=== PATIENT | male | born 1965 | race Caucasian/White ===

== ENCOUNTER 2022-11-20 12:47 | Inpatient (IN) | payer OTHER ==
[~2022-11-20] VITALS: Ht 185.4 cm; Wt 47.6 kg
--- NOTE | 2022-11-20 13:03 | NUR ---
DR HUNT AT BEDSIDE
--- NOTE | 2022-11-20 13:21 | NUR ---
CHRISTINA ESTABLISHED. Lindsey BURGOS 20G.
--- NOTE | 2022-11-20 13:21 | NUR ---
covid swab collected and sent to lab
--- NOTE | 2022-11-20 13:21 | NUR ---
BLOOD COLLECTED AND SENT TO LAB
--- NOTE | 2022-11-20 13:29 | NUR ---
URINE SAMPLE COLLECTED AND SENT TO LAB
[2022-11-20 13:57] LABS: BASOPHILS % (AUTO) 0.9 % (0.0-2.0); EOSINOPHILS % (AUTO) 0.6 % (0.0-6.0); HEMATOCRIT 36 % (39-51); HEMOGLOBIN 12.1 g/dL (13.5-17.5); LYMPHOCYTES # (AUTO) 0.9 K/uL (0.8-4.8); LYMPHOCYTES % (AUTO) 27.1 % (20.0-44.0); MEAN CORPUSCULAR HGB CONC 33 g/dl (31.0-36.0); MEAN CORPUSCULAR VOLUME 94 fL (80-96); MONOCYTES # (AUTO) 0.5 K/uL (0.1-1.30); MONOCYTES % (AUTO) 15.7 % (2.0-12.0); NEUTROPHILS # (AUTO) 1.8 K/uL (1.8-8.9); NEUTROPHILS % (AUTO) 55.7 % (43.0-81.0); PLATELET COUNT (AUTO) 114 K/uL (150-450); RED BLOOD CELL COUNT(AUTO) 3.86 MIL/uL (4.5-6.0); WHITE BLOOD COUNT (AUTO) 3.3 K/uL (4.3-11.0)
[2022-11-20] MEDS ORDERED: SENN-261 PO (14:00)
[2022-11-20] MEDS ORDERED: ACET-2605 PO (14:00)
[2022-11-20] MEDS ORDERED: MEGE400O4 PO (14:00)
[2022-11-20] MEDS ORDERED: FLUC200T8 PO (14:00)
[2022-11-20] MEDS ORDERED: MAGN400O6 PO (14:00)
[2022-11-20] MEDS ORDERED: NA P133E RC (14:00)
[2022-11-20] MEDS ORDERED: DOCU-141 PO (14:00)
[2022-11-20] MEDS ORDERED: BISA10SU11 RC (14:00)
[2022-11-20] MEDS ORDERED: ACET-868 PO (14:00)
[2022-11-20 14:06] LABS: CALCIUM, SERUM 9.8 mg/dL (8.5-10.1); CARBON DIOXIDE 23 mmol/L (21-32); CHLORIDE 114 mmol/L (98-107); CREATININE 2.1 mg/dL (0.6-1.3); GLUCOSE 95 mg/dL (74-106); POTASSIUM 4.2 mmol/L (3.5-5.1); SODIUM SERUM 148 mmol/L (136-145); UREA NITROGEN, BLOOD 45 mg/dL (7-18)
[2022-11-20 14:19] LABS: ALANINE AMINOTRANSFERASE 34 U/L (12-78); ALBUMIN 2.9 g/dL (3.4-5.0); ALKALINE PHOSPHATASE 315 U/L (46-116); ASPARTATE AMINOTRANSFERASE 27 U/L (15-37); BILIRUBIN,DIRECT 0.2 mg/dL (0.0-0.2); BILIRUBIN,TOTAL 0.5 mg/dL (0.2-1.0); TOTAL PROTEIN, SERUM 8.7 g/dL (6.4-8.2)
[2022-11-20 14:21] LABS: BILIRUBIN,URINE NEGATIVE (NEGATIVE); COLOR,URINE YELLOW (YELLOW); LEUKOCYTE ESTERASE ,URINE NEGATIVE (NEGATIVE); NITRITE, URINE NEGATIVE (NEGATIVE); PH,URINE 7.5 (5.0-8.0); PROTEIN,URINE TRACE mg/dl (NEGATIVE); UGLUCOSE NEGATIVE (NEGATIVE); UROBILINOGEN,URINE 0.2 EU/dL (0.2)
[2022-11-20] MEDS ORDERED: IV NS 0.9% 500 ML BAG IV ONE (14:30)
[2022-11-20 14:32] LABS: BACTERIA,URINE Rare /HPF (None Seen); SQUAMOUS EPITHELIAL CELL,UR Few /HPF (None Seen); WBC,URINE 0-2 /HPF (0-3)
[2022-11-20] MEDS ORDERED: ACETAMINOPHEN 325 MG TABLET PO PRN (15:30)
[2022-11-20] MEDS ORDERED: Z GUARD REMEDY 4 OZ OINT TP PRN (15:30)
[2022-11-20] MEDS ORDERED: MAG HYDROX/AL HYDROX/SIMETH 30 ML UDC PO PRN (15:30)
[2022-11-20] MEDS ORDERED: ONDANSETRON HCL/PF 4 MG/2 ML VIAL IVP PRN (15:30)
[2022-11-20] MEDS ORDERED: MORPHINE SULFATE INJ 2 MG/ML DISP.SYRIN IV PRN (15:30)
[2022-11-20] MEDS ORDERED: HYDROCODONE/APAP 5/325MG TABLET PO PRN (15:30)
[2022-11-20] MEDS ORDERED: MAGNESIUM HYDROXIDE 30 ML UDC PO PRN (15:30)
[2022-11-20] MEDS ORDERED: LORAZEPAM INJ 2 MG/ML VIAL IV PRN (15:30)
--- NOTE | 2022-11-20 15:41 | NUR ---
ULTRASOUND AT BEDSIDE
[2022-11-20 16:04] LABS: BAND % (MANUAL) 1 % (0.0-5.0); EOSINOPHILS % (MANUAL) 1 % (0-4); LYMPHOCYTES % (MANUAL) 24 % (16-48); MONOCYTES % (MANUAL) 12 % (0-11.0); NEUTROPHILS % (MANUAL) 62 (42-76)
[2022-11-20] MEDS: ENSURE ENLIVE 237 ML LIQUID (VANILLA) PO SCH (17:00)
--- NOTE | 2022-11-20 18:33 | NUR ---
REPORT GIVEN TO [facility] FOR INPATIENT ADMISSION.
--- NOTE | 2022-11-20 18:46 | NUR ---
PATIENT TRANSFERRED TO [facility] VIA [facility]
--- NOTE | 2022-11-20 18:48 | NUR ---
"PATIENT WAS TRANSFERRED TO [facility] AT 1840. VS BP 97/60 | MS 73 RR 20 | T 97.8 | SATURATING 100% ON RA. WILL ENDORSE TO ONCOMING SHIFT."
[2022-11-20 20:00] VITALS: BP 114/76
[2022-11-20] MEDS: IV D5/0.45 NACL 1,000 ML IV PRN (20:40)
--- NOTE | 2022-11-20 22:00 | NUR ---
ADMISSION NOTE PATIENT WAS ALREADY IN ROOM DURING MARCIA REPORT. PATIENT A/OX1 TO NAME ONLY, HENCE UNABLE TO PARTICIPATE IN ADMISSION QUESTIONS. NO S/S OF APPARENT DISTRESS ON ROOM AIR. DENIES ANY PAIN NOR DISCOMFORT. NOTED TO BE MALNOURISHED, PATIENT PASSED NURSING SWALLOW EVAL. NEW ID BAND ON PATIENT. IV ON LEFT UPPER ARM #20G PERIPHERAL-- STARTED ON D5 1/2 NS @125MLS/HR ORDERED. SKIN INTACT, WITH BONY PROMINENCES, PATIENT HAS BED MOBILITY. PATIENT IS FULL CODE--POLST IN CHART. UNKNOWN OF VACCINATION STATUS,. UNKNOWN IF EVER SMOKED NOR ALCOHOL ABUSE. SAFETY IN PLACE-- BED IN LOWEST LOCKED POSITION, SIDE RAILS UP X4, CALL LIGHT WITHIN REACH, BED ALARM ON. WILL FOLLOW THROUGH DOCTOR'S ORDERS AND DO FREQUENT PATIENT RE-ORIENTATION.
[2022-11-21] MEDS: IV D5/0.45 NACL 1,000 ML IV PRN ×2 (06:12→17:10)
[2022-11-21 06:23] LABS: BASOPHILS % (AUTO) 1.1 % (0.0-2.0); HEMATOCRIT 29 % (39-51); HEMOGLOBIN 9.8 g/dL (13.5-17.5); LYMPHOCYTES # (AUTO) 0.7 K/uL (0.8-4.8); LYMPHOCYTES % (AUTO) 26.5 % (20.0-44.0); MEAN CORPUSCULAR HGB CONC 34 g/dl (31.0-36.0); MEAN CORPUSCULAR VOLUME 94 fL (80-96); MONOCYTES # (AUTO) 0.4 K/uL (0.1-1.30); MONOCYTES % (AUTO) 15.8 % (2.0-12.0); NEUTROPHILS # (AUTO) 1.4 K/uL (1.8-8.9); NEUTROPHILS % (AUTO) 55.6 % (43.0-81.0); PLATELET COUNT (AUTO) 94 K/uL (150-450); RED BLOOD CELL COUNT(AUTO) 3.13 MIL/uL (4.5-6.0); WHITE BLOOD COUNT (AUTO) 2.5 K/uL (4.3-11.0)
[2022-11-21 06:49] LABS: CALCIUM, SERUM 8.5 mg/dL (8.5-10.1); CREATININE 2.1 mg/dL (0.6-1.3); PHOSPHORUS 3.7 mg/dL (2.5-4.9); POTASSIUM 3.6 mmol/L (3.5-5.1)
[2022-11-21 07:00] VITALS: BP 116/83
[2022-11-21 07:01] LABS: THYROID STIMULATING HORMONE 2.764 uIU/mL (0.358-3.74)
--- NOTE | 2022-11-21 07:06 | NUR ---
MS RN OPENING NOTES RECEIVED PATIENT SLEEPING IN BED, A/Ox1, EASILY AWAKENED TO VERBAL AND TACTILE STIMULI. ON ROOM AIR, NO S/S OF RESPIRATORY DISTRESS. IV ACCESS LEFT UPPER ARM #20 RUNNING D5 1/2 NS @125 ML/HR. INTACT AND PATENT. PATIENT INCONTINENT USES DIAPER. SKIN INTACT. SAFETY MEASURES IN PLACE: BED LOCKED AND IN LOWEST POSITION, HOB ELEVATED, CALL LIGHT WITHIN REACH, SIDE RAILS UPx3. WILL CONTINUE TO MONITOR.
--- NOTE | 2022-11-21 07:23 | NUR ---
noc rn closing patient in bed, with eyes closed easy to arouse. no s/s of apparent distress on room air. not exhibiting pain via flacc. patient IV access on left upper arm #20g running D5 1/2 ns @125mls/hr. all needs attended. all scheduled meds administered. safety kept in place. report given to JIMMY Nguyen for continuity of patient care.
[2022-11-21] MEDS: ENSURE ENLIVE 237 ML LIQUID (VANILLA) PO SCH ×4 (07:53→17:09)
[2022-11-21] MEDS: PANTOPRAZOLE 40 MG VIAL IV SCH (08:18)
--- NOTE | 2022-11-21 10:30 | NUR ---
RN NOTES PATIENT WORKED WITH PT AND WAS ABLE TO STAND WITH ASSISTANCE, NEEDS ASSISTANCE WITH AMBULATION AND STANDING. WILL CONTINUE TO MONITOR.
[2022-11-21 16:00] VITALS: BP 112/72
[2022-11-21 16:53] LABS: BAND % (MANUAL) 1 % (0.0-5.0); EOSINOPHILS % (MANUAL) 1 % (0-4); LYMPHOCYTES % (MANUAL) 37 % (16-48); MONOCYTES % (MANUAL) 4 % (0-11.0); NEUTROPHILS % (MANUAL) 57 (42-76)
--- NOTE | 2022-11-21 18:49 | NUR ---
MS RN CLOSING NOTES PATIENT SLEEPING IN BED, A/Ox1-2, EASILY AWAKENED TO VERBAL AND TACTILE STIMULI. STABLE ON ROOM AIR, NO S/S OF RESPIRATORY DISTRESS. IV ACCESS LEFT UPPER ARM #20 RUNNING D5 1/2 NS @125 ML/HR. INTACT AND PATENT. PATIENT INCONTINENT USES DIAPER. SKIN INTACT. SAFETY MEASURES MAINTAINED: BED LOCKED AND IN LOWEST POSITION, HOB ELEVATED, CALL LIGHT WITHIN REACH, SIDE RAILS UPx3. WILL ENDORSE TO NEXT SHIFT ANY MARCIA.
--- NOTE | 2022-11-21 19:37 | NUR ---
MS RN OPENING NOTES: RECEIVED PATIENT SLEEP IN BED COMFORTABLY, AROUSABLE TO VERBAL STIMULI, BED IN LOW POSITION, CALL LIGHTS WITHIN REACH, NO COMPLAIN OF PAIN AND DISCOMFORT AT THIS TIME ON ROOM AIR SATURATING WELL, PATIENT IS A/OX1 ON BED REST, IV LINE AT VIKTORIA#20 WITH ONGOING D5 1/2 NSS@75ML/HR INFUSING WELL, PATIENT KEPT CLEAN AND DRY ALL NEEDS MET WILL CONTINUE TO MONITOR.
[2022-11-21 20:00] VITALS: BP_SYST 105; BP_SYST 130; BP_DIAS 71; BP_DIAS 73
[2022-11-21 20:42] VITALS: BP 105/71
[2022-11-22 06:25] LABS: CALCIUM, SERUM 8.1 mg/dL (8.5-10.1); CREATININE 1.6 mg/dL (0.6-1.3); POTASSIUM 3.7 mmol/L (3.5-5.1)
--- NOTE | 2022-11-22 06:30 | NUR ---
RN CLOSING NOTES: RECEIVED PATIENT SLEEP IN BED COMFORTABLY, AROUSABLE TO VERBAL STIMULI, BED IN LOW POSITION CALL LIGHTS WITHIN REACH, NO COMPLAIN OF PAIN AND DISCOMFORT AT THIS TIME, ON ROOM AIR SATURATING WELL, IV LINE AT VIKTORIA#2O WITH ONGOING D5 1/2 NSS@75ML/HR INFUSING WELL, PATIENT KEPT CLEAN AND DRY ALL NEEDS MET ENDORSE TO INCOMING SHIFT.
[2022-11-22 07:00] VITALS: BP 103/69
--- NOTE | 2022-11-22 07:20 | NUR ---
MS RN OPENING NOTE RECEIVED PATIENT IN BED ASLEEP BUT WAKES UP EASILY, PATIENT IS ALERT AND ORIENTED X 2, ABLE TO MAKE NEEDS KNOWN. ON ROOM AIR WITH NO SIGNS OF RESPIRATORY DISTRESS. WITH IV ACCESS ONT HE LEFT UPPER ARM G20 WITH IVF D5 1/2 NS RUNNING AT 75 ML/HR INFUSING WELL. WITH SKIN INTACT. SAFETY MEASURES IN PLACE WITH BED IN LOWEST LOCKED POSITION, SIDERAILS AND BED ALARM ON. CALL LIGHT WITHIN REACH AT ALL TIMES. WILL CONTINUE WITH PLAN OF CARE.
[2022-11-22 07:44] LABS: BASOPHILS % (AUTO) 1.1 % (0.0-2.0); EOSINOPHILS % (AUTO) 1.4 % (0.0-6.0); HEMATOCRIT 28 % (39-51); HEMOGLOBIN 9.3 g/dL (13.5-17.5); LYMPHOCYTES # (AUTO) 0.7 K/uL (0.8-4.8); LYMPHOCYTES % (AUTO) 29.7 % (20.0-44.0); MEAN CORPUSCULAR HGB CONC 34 g/dl (31.0-36.0); MEAN CORPUSCULAR VOLUME 93 fL (80-96); MONOCYTES # (AUTO) 0.5 K/uL (0.1-1.30); MONOCYTES % (AUTO) 22.8 % (2.0-12.0); PLATELET COUNT (AUTO) 87 K/uL (150-450); RED BLOOD CELL COUNT(AUTO) 2.96 MIL/uL (4.5-6.0); WHITE BLOOD COUNT (AUTO) 2.3 K/uL (4.3-11.0)
--- NOTE | 2022-11-22 07:48 | NUR ---
MRI ON HOLD PER DR. NIEVES, HE WILL LET US KNOW.
[2022-11-22] MEDS: PANTOPRAZOLE 40 MG VIAL IV SCH (08:52)
[2022-11-22] MEDS: ENSURE ENLIVE 237 ML LIQUID (VANILLA) PO SCH ×3 (08:52→17:14)
--- NOTE | 2022-11-22 10:00 | NUR ---
MS RN NOTE SEEN BY HOSPITALIST PILI
[2022-11-22] MEDS: IV D5/0.45 NACL 1,000 ML IV PRN (11:16)
--- NOTE | 2022-11-22 14:10 | NUR ---
MS RN NOTE SEEN BY DR. MORRIS
[2022-11-22] MEDS ORDERED: ACETAMINOPHEN ES 500 MG TABLET PO PRN (16:30)
[2022-11-22] MEDS ORDERED: BISACODYL SUPP (10 MG) 10 MG/SUPP.RECT SUPP.RECT RC PRN (16:30)
[2022-11-22] MEDS ORDERED: NA PHOS,M-B/NA PHOS,DI-BA 1 EA ENEMA RC PRN (16:30)
[2022-11-22] MEDS ORDERED: ACETAMINOPHEN 325 MG TABLET PO PRN (16:30)
[2022-11-22] MEDS ORDERED: MAGNESIUM HYDROXIDE 30 ML UDC PO PRN (16:30)
[2022-11-22] MEDS: MEGESTROL ACETATE SUSP 400 MG/10 ML UDC PO SCH (17:14)
--- NOTE | 2022-11-22 19:10 | NUR ---
MS RN CLOSING NOTE PATIENT IS ALERT AND ORIENTED X 2, ABLE TO MAKE NEEDS KNOWN. ON ROOM AIR WITH NO SIGNS OF RESPIRATORY DISTRESS. WITH IV ACCESS ONT HE LEFT UPPER ARM G20 WITH IVF D5 1/2 NS RUNNING AT 75 ML/HR INFUSING WELL. WITH SKIN INTACT. SAFETY MEASURES IN PLACE WITH BED IN LOWEST LOCKED POSITION, SIDERAILS AND BED ALARM ON. CALL LIGHT WITHIN REACH AT ALL TIMES. WILL ENDORSE TO NEXT SHIFT FOR CONTINUITY OF CARE.
--- NOTE | 2022-11-22 19:39 | NUR ---
MS RN OPENING NOTE RECEIVED PT AWAKE IN BED. A/O X2 AND ABLE TO MAKE NEEDS KNOWN. PT STABLE ON ROOM AIR. NO SOB OR S/S OF RESPIRATORY DISTRESS. BREATHING EVEN AND UNLABORED. IV SITE REMOVED BY PATIENT AT CHANGE OF SHIFT, WILL REINSERT. SAFETY PRECAUTIONS IN PLACE. BED IN LOWEST LOCKED POSITION, HOB ELEVATED, SIDE RAILS UP X3, BED ALARM ON, AND CALL LIGHT AND TABLE WITHIN REACH. ALL NEEDS MET AT THIS TIME.
[2022-11-22 20:00] VITALS: BP 121/78
[2022-11-22] MEDS: SENNOSIDES 8.6 MG TABLET PO SCH (21:12)
[2022-11-23 03:59] LABS: BAND % (MANUAL) 1 % (0.0-5.0); EOSINOPHILS % (MANUAL) 1 % (0-4); LYMPHOCYTES % (MANUAL) 31 % (16-48); MONOCYTES % (MANUAL) 8 % (0-11.0); NEUTROPHILS % (MANUAL) 59 (42-76)
--- NOTE | 2022-11-23 05:44 | NUR ---
RN NOTE MULTIPLE PIV ATTEMPTS, PT HARD STICK. PT REQUESTED TO STOP AND TO TRY BACK LATER. CHARGE NURSE LARON AWARE.
[2022-11-23 06:30] LABS: BASOPHILS % (AUTO) 1.1 % (0.0-2.0); EOSINOPHILS % (AUTO) 1.3 % (0.0-6.0); HEMATOCRIT 28 % (39-51); HEMOGLOBIN 9.5 g/dL (13.5-17.5); LYMPHOCYTES # (AUTO) 0.7 K/uL (0.8-4.8); LYMPHOCYTES % (AUTO) 30.6 % (20.0-44.0); MEAN CORPUSCULAR HGB CONC 34 g/dl (31.0-36.0); MEAN CORPUSCULAR VOLUME 92 fL (80-96); MONOCYTES # (AUTO) 0.3 K/uL (0.1-1.30); MONOCYTES % (AUTO) 14.6 % (2.0-12.0); NEUTROPHILS # (AUTO) 1.1 K/uL (1.8-8.9); NEUTROPHILS % (AUTO) 52.4 % (43.0-81.0); PLATELET COUNT (AUTO) 84 K/uL (150-450); RED BLOOD CELL COUNT(AUTO) 3.01 MIL/uL (4.5-6.0); WHITE BLOOD COUNT (AUTO) 2.1 K/uL (4.3-11.0)
[2022-11-23 06:39] LABS: CALCIUM, SERUM 8.5 mg/dL (8.5-10.1); CREATININE 1.2 mg/dL (0.6-1.3); POTASSIUM 3.6 mmol/L (3.5-5.1)
--- NOTE | 2022-11-23 06:40 | NUR ---
MS RN CLOSING NOTE PT AWAKE IN BED. A/O X2 AND ABLE TO MAKE NEEDS KNOWN. PT STABLE ON ROOM AIR. NO SOB OR S/S OF RESPIRATORY DISTRESS. BREATHING EVEN AND UNLABORED. NO IV SITE AT THIS TIME, MULTIPLE ATTEMPTS BUT PT REQUESTED REINSERTION LATER. ALL DUE MEDS GIVEN ORDERED. KEPT CLEAN AND DRY. SAFETY PRECAUTIONS IN PLACE AT ALL TIMES. BED IN LOWEST LOCKED POSITION, HOB ELEVATED, SIDE RAILS UP X3, BED ALARM ON, AND CALL LIGHT AND TABLE WITHIN REACH. ALL NEEDS MET AT THIS TIME AND WILL ENDORSE TO ONCOMING NURSE FOR MARCIA.
--- NOTE | 2022-11-23 07:00 | NUR ---
MS RN OPENING NOTES: RECEIVED PATIENT IN BED AWAKE, ALERT AND ORIENTED X 2 WITH EPISODES OF CONFUSION PT TRYING TO GET OUT ON BED, PT UNSTABLE.. NO SOB OR CARDIAC DISTRESS NOTED. ON O2 INHALATION VIA NC (STAND BY) PT ON ROOM AIR SATURATING 96%. NO IV ACCESS PER MAINTENANCE MECHANIC ENGINEUX VISUAL DESIGNER THEY TRIED 6X. SAFETY MEASURES MAINTAINED: BED LOCKED AND IN LOWEST POSITION, SIDE RAILS UP X 2. CALL LIGHT AND BED SIDE TABLE IM EASY REACH FOR HELP AND WILL MONITOR PT ACCORDINGLY. BED ALARM ON.
[2022-11-23] MEDS: PANTOPRAZOLE 40 MG TABLET.DR PO SCH (07:24)
[2022-11-23] MEDS: ENSURE ENLIVE 237 ML LIQUID (VANILLA) PO SCH ×3 (07:59→16:45)
[2022-11-23 08:00] VITALS: BP 117/75
[2022-11-23] MEDS: FLUCONAZOLE (100 MG) 100 MG TABLET PO SCH (08:39)
[2022-11-23] MEDS: DOCUSATE SODIUM 100 MG CAPSULE PO SCH (08:39)
[2022-11-23] MEDS: MEGESTROL ACETATE SUSP 400 MG/10 ML UDC PO SCH ×2 (08:39→16:45)
--- NOTE | 2022-11-23 11:31 | NUR ---
RN NOTES: INSERTED MIDLINE IV ACCESS ON VIKTORIA GAUGE 18 PATENT, INTACT AND WITH GOOD BLOOD FLOW.
--- NOTE | 2022-11-23 12:00 | NUR ---
RN NOTES: RNAULFO () REPORTED THAT PT HAD LARGE BM AND HAD OPEN WOUND ON RIGHT BUTTOCK WITH SCATTERED BLISTER ON R/L BUTTOCK. TOOK PHOTO AND FILED TO PT'S CHART, FOR WOUND CARE CONSULT. ENCOURAGED PT TURN Q2H FROM SIDE TO SIDE OR GET OUT ON BED IF STABLE TO DO AND WITH STAFF/ ASSISTANCE. INFORMED MD.
[2022-11-23 12:07] LABS: *% CD 4 POS. LYMPH 8.3 % (30.8-58.5); *% CD 8 POS. LYMPH 85.1 % (12.0-35.5); *ABSOLUTE CD 4 HELPER 50 /uL (359-1519); *ABSOLUTE CD 8 SUPPRESSOR 511 /uL (109-897); *BASOS 1 % (Not Estab.); *COMMENTS Note: (.); *EOS 1 % (Not Estab.); *HCT 26.2 % (37.5-51.0); *HGB 8.8 g/dL (13.0-17.7); *IMMATURE GRANULOCYTES 1 % (Not Estab.); *LYMPHOCYTES 30 % (Not Estab.); *LYMPHS, ABSOLUTE 0.6 x10E3/uL (0.7-3.1); *MCH 31.4 pg (26.6-33.0); *MCHC 33.6 g/dL (31.5-35.7); *MCV 94 fL (79-97); *MONOCYTES 11 % (Not Estab.); *MONOS, ABSOLUTE 0.2 x10E3/uL (0.1-0.9); *NEUTROPHILS 56 % (Not Estab.); *NEUTROPHILS, ABSOLUTE 1.2 x10E3/uL (1.4-7.0); *PLT 79 x10E3/uL (150-450); *RDW 14.2 % (11.6-15.4)
[2022-11-23] MEDS: IV D5/0.45 NACL 1,000 ML IV PRN (12:14)
[2022-11-23] MEDS ORDERED: AZITHROMYCIN 250 MG TABLET PO SCH (13:00)
[2022-11-23] MEDS ORDERED: FLUCONAZOLE (100 MG) 100 MG TABLET PO SCH (13:00)
[2022-11-23] MEDS: SULFAMETH/TRIMETH 800/160 MG 1 UDTAB TABLET PO SCH (14:00)
[2022-11-23] MEDS: CEFTRIAXONE 2 G in IV D5W 100 ML IV SCH (14:55)
[2022-11-23] MEDS ORDERED: VANCOMYCIN 1 GM in IV D5W 250ml IV ONE (15:00)
[2022-11-23] MEDS ORDERED: GADOTERATE MEGLUMINE 10 MMOL/20 ML VIAL IV ONE (15:39)
[2022-11-23 16:04] VITALS: BP 106/61
[2022-11-23] MEDS: ACYCLOVIR 800 MG TABLET PO SCH ×2 (16:07→16:49)
[2022-11-23 16:12] LABS: C-REACTIVE PROTEIN 2.7 mg/dL (0.0-0.9)
[2022-11-23 16:19] LABS: D-DIMER 7.27 mg/L(FEU (0.17-0.50)
--- NOTE | 2022-11-23 16:49 | NUR ---
RN NOTES: ZOVIRAX DUE AT 177 NOT GIVEN, INITIAL DOSE GIVEN @1600, INFORMED PHARMACIST AND HE SAID NON ADMIN THE 1700.
--- NOTE | 2022-11-23 18:43 | NUR ---
MS RN CLOSING NOTES: PATIENT IN BED AWAKE, ALERT AND ORIENTED X 2 WITH EPISODES OF CONFUSION PT TRYING TO GET OUT ON BED, PT UNSTABLE. NO SOB OR CARDIAC DISTRESS NOTED. ON O2 INHALATION VIA NC (STAND BY) PT ON ROOM AIR SATURATING 96%. IV ACCESS ON VIKTORIA ML GAUGE 18 PATENT INTACT AND INFUSING D5 1/2 NS @ 75ML/HR. SAFETY MEASURES MAINTAINED: BED LOCKED AND IN LOWEST POSITION, SIDE RAILS UP X 3. CALL LIGHT AND BED SIDE TABLE IM EASY REACH FOR HELP AND WILL MONITOR PT ACCORDINGLY. BED ALARM ON.ENDORSED TO SOLUTIONS ARCHITECT RN FOR CONTINUITY OF CARE.
--- NOTE | 2022-11-23 19:20 | NUR ---
MS RN OPENING NOTES - RECEIVED PATIENT IN BED AWAKE. A/O X2. BREATHING EVEN AND NON-LABORED ON ROOM AIR. NOT IN APPARENT DISTRESS. DENIES PAIN AT THIS TIME. HAS LEFT UPPER ARM MIDLINE #18G WITH D5 1/2NS RUNNING AT 75 ML/HR. NO S/S OF INFILTRATION NOTED. SAFETY PRECAUTIONS IN PLACE: BED LOCKED AND IN LOW POSITION, SIDE RAILS UP X3, CALL LIGHT WITHIN REACH. WILL CONTINUE PLAN OF CARE.
[2022-11-23 20:00] VITALS: BP 97/67
[2022-11-23 20:12] LABS: BASOPHILS % (MANUAL) 2 % (0.0-2.0); EOSINOPHILS % (MANUAL) 2 % (0-4); LYMPHOCYTES % (MANUAL) 32 % (16-48); MONOCYTES % (MANUAL) 4 % (0-11.0); NEUTROPHILS % (MANUAL) 60 (42-76)
[2022-11-23 20:50] VITALS: BP 97/67
[2022-11-23] MEDS: SENNOSIDES 8.6 MG TABLET PO SCH (21:57)
[2022-11-24] MEDS: VANCOMYCIN HCL 0.75 GM in IV D5W 250 ML IV SCH ×2 (02:20→15:43)
[2022-11-24] MEDS: IV D5/0.45 NACL 1,000 ML IV PRN ×2 (06:20→18:30)
--- NOTE | 2022-11-24 06:52 | NUR ---
MS RN CLOSING NOTES - PATIENT SLEEPING, EASY TO AROUSE. WITH PERIODS OF CONFUSION NOTED, FREQUENT REORIENTATION NEEDED. CURRENTLY NPO. NO SOB OR NOTED, TOLERATING ROOM AIR WELL. NO CARDIAC OR RESPIRATORY DISTRESS. NO C/O PAIN OR DISCOMFORT. AFEBRILE. LEFT UPPER ARM MIDLINE INTACT, PATENT AND FLUSHING. ALL DUE MEDS GIVEN AND NEEDS ATTENDED. SAFETY PRECAUTIONS MAINTAINED. WILL ENDORSE TO NEXT SHIFT FOR MARCIA.
--- NOTE | 2022-11-24 07:00 | NUR ---
MS RN OPENING NOTES: RECEIVED PATIENT IN BED AWAKE, ALERT AND ORIENTED X 2 WITH EPISODES OF CONFUSION. NO SOB OR CARDIAC DISTRESS NOTED. ON O2 INHALATION VIA NC (STAND BY) PT ON ROOM AIR SATURATING 96%. IV ACCESS ON VIKTORIA ML GAUGE 18 PATENT INTACT AND INFUSING D5 1/2 NS @ 75ML/HR. SAFETY MEASURES MAINTAINED: BED LOCKED AND IN LOWEST POSITION, SIDE RAILS UP X 2. CALL LIGHT AND BED SIDE TABLE IN EASY REACH FOR HELP AND WILL MONITOR PT ACCORDINGLY. BED ALARM ON.
[2022-11-24] MEDS: PANTOPRAZOLE 40 MG TABLET.DR PO SCH (07:14)
[2022-11-24] MEDS: ENSURE ENLIVE 237 ML LIQUID (VANILLA) PO SCH ×3 (07:39→16:35)
[2022-11-24 07:41] LABS: EOSINOPHILS % (AUTO) 0.9 % (0.0-6.0); HEMATOCRIT 28 % (39-51); HEMOGLOBIN 9.6 g/dL (13.5-17.5); LYMPHOCYTES # (AUTO) 0.5 K/uL (0.8-4.8); LYMPHOCYTES % (AUTO) 26.4 % (20.0-44.0); MEAN CORPUSCULAR HGB CONC 34 g/dl (31.0-36.0); MEAN CORPUSCULAR VOLUME 92 fL (80-96); MONOCYTES # (AUTO) 0.2 K/uL (0.1-1.30); MONOCYTES % (AUTO) 13.2 % (2.0-12.0); NEUTROPHILS % (AUTO) 58.5 % (43.0-81.0); PLATELET COUNT (AUTO) 81 K/uL (150-450); RED BLOOD CELL COUNT(AUTO) 3.05 MIL/uL (4.5-6.0)
[2022-11-24 07:46] LABS: D-DIMER 7.17 mg/L(FEU (0.17-0.50)
[2022-11-24 07:48] LABS: CALCIUM, SERUM 8.2 mg/dL (8.5-10.1); CREATININE 1.2 mg/dL (0.6-1.3); POTASSIUM 3.6 mmol/L (3.5-5.1)
[2022-11-24 07:50] LABS: WHITE BLOOD COUNT (AUTO) 1.8 K/uL (4.3-11.0)
[2022-11-24 08:00] VITALS: BP 134/62
[2022-11-24] MEDS: DOCUSATE SODIUM 100 MG CAPSULE PO SCH ×2 (09:32→10:21)
--- NOTE | 2022-11-24 10:00 | NUR ---
RN NOTES: RESUMED ON MECHANICAL SOFT DIET. PER US TECH THEY CANT DO ROUTINE US DURING WEEKENDS ONLY STAT. US ORDERED FOR PT IS ROUTINE. PILI MCCORMICK MADE AWARE AND CHARGE NURSE MARTHA. GIVEN PT JELLO AND SIPS OF MILK.
[2022-11-24] MEDS: FLUCONAZOLE (100 MG) 100 MG TABLET PO SCH ×2 (10:21→10:29)
[2022-11-24] MEDS: MEGESTROL ACETATE SUSP 400 MG/10 ML UDC PO SCH ×2 (10:28→16:34)
[2022-11-24] MEDS: ACYCLOVIR 800 MG TABLET PO SCH ×2 (12:08→16:34)
[2022-11-24 12:09] LABS: BAND % (MANUAL) 6 % (0.0-5.0); BASOPHILS % (MANUAL) 0 % (0.0-2.0); EOSINOPHILS % (MANUAL) 1 % (0-4); LYMPHOCYTES % (MANUAL) 29 % (16-48); MONOCYTES % (MANUAL) 13 % (0-11.0); NEUTROPHILS % (MANUAL) 57 (42-76)
--- NOTE | 2022-11-24 12:31 | NUR ---
RN NOTES: US TECH ARRIVED AND SHE SAID SHE WILL DO THE US OF ABDOMEN, INFORMED HER THAT PT HAD SIPS OF MILK AND JELLO, SHE SAID ITS OKAY. CHARGE NURSE MADE AWARE.
[2022-11-24] MEDS: CEFTRIAXONE 2 G in IV D5W 100 ML IV SCH (12:34)
[2022-11-24] MEDS: SULFAMETH/TRIMETH 800/160 MG 1 UDTAB TABLET PO SCH (12:44)
--- NOTE | 2022-11-24 15:52 | NUR ---
RN NOTES: PATIENT PULLED OUT MIDLINE ACCESS ON VIKTORIA, REINSERTED IV ACCESS ON VIKTORIA GAUGE 20 PATENT INTACT AND INFUSING IV FLUIDS.
[2022-11-24 15:56] LABS: OCCULT BLOOD STOOL NEGATIVE (NEGATIVE)
[2022-11-24 16:00] VITALS: BP 109/59
--- NOTE | 2022-11-24 18:10 | NUR ---
RN NOTES: CHRISTIE MIDDLETON (FRIEND) REFUSED TO SIGN LUMBAR PUNCTURE FOR PT. PER KANE PT HAD LUMBAR PUNCTURE FEW MONTHS AGO. CHARGE NURSE MARTHA FAXED THE MEDICAL RELEASE TO [facility]. KANE GAVE PERMISSION OR CONSENT FOR CT ABDOMEN AND PELVIS WITH CONTRAST.
--- NOTE | 2022-11-24 18:43 | NUR ---
MS RN CLOSING NOTES: PATIENT IN BED ASLEEP EASILY AWAKENS WITH STIMULI, ALERT AND ORIENTED X 2 WITH EPISODES OF CONFUSION PT TRYING TO GET OUT ON BED, PT UNSTABLE. NO SOB OR CARDIAC DISTRESS NOTED. ON O2 INHALATION VIA NC (STAND BY) PT ON ROOM AIR SATURATING 98%. IV ACCESS ON LFA GAUGE 22 PATENT INTACT AND INFUSING D5 1/2 NS @ 75ML/HR. SAFETY MEASURES MAINTAINED: BED LOCKED AND IN LOWEST POSITION, SIDE RAILS UP X 3. CALL LIGHT AND BED SIDE TABLE IM EASY REACH FOR HELP AND WILL MONITOR PT ACCORDINGLY. BED ALARM ON.ENDORSED TO SENIOR CARE MANAGER RN FOR CONTINUITY OF CARE.
--- NOTE | 2022-11-24 19:15 | NUR ---
RN opening notes Received Pt from morning nurse. Pt is sitting in bed comfortably watching TV. Pt is alert and orientedX2 with episode of confusion. On room air. no SOB. No S/s of distress noted. Iv site at VIKTORIA # 22 is clean, intact and infusing well D51/2NS @ 75 ml/hr. safety precautions is maintained. Bed at low position, brakes locked, side rails upX3, hob elevated, bed alarm is on, urinal at the bed side and call light is within reach. Will continue to monitor.
--- NOTE | 2022-11-24 19:35 | NUR ---
RN notes Called Radiology and spoke with Macie regarding CT abdomen W/Contrast. Macie informed possibly at 0900 am. will continue to monitor.
[2022-11-24 20:00] VITALS: BP 100/63
[2022-11-24 20:34] VITALS: BP 100/63
[2022-11-24] MEDS: SENNOSIDES 8.6 MG TABLET PO SCH (21:09)
[2022-11-25] MEDS: VANCOMYCIN HCL 0.75 GM in IV D5W 250 ML IV SCH ×2 (03:25→15:06)
--- NOTE | 2022-11-25 06:53 | NUR ---
RN closing notes Pt is resting in bed comfortably. Pt is alert and orientedX2 with episode of confusion. On room air. No SOB. No S/s of distress noted. VS is stable. Routine meds were given as ordered. Iv site at [facility] # 22 is clean, intact and infusing well D51/2NS @ 75 ml/hr. Kept Pt clean, dry and comfortbale. safety precautions is maintained. Bed at low position, brakes locked, side rails upX3, hob elevated, bed alarm is on, urinal at the bed side and call light is within reach. Will endorse to am nurse for Dorinda.
[2022-11-25 06:58] LABS: BASOPHILS % (AUTO) 0.6 % (0.0-2.0); EOSINOPHILS % (AUTO) 0.4 % (0.0-6.0); HEMATOCRIT 28 % (39-51); HEMOGLOBIN 9.7 g/dL (13.5-17.5); LYMPHOCYTES # (AUTO) 0.6 K/uL (0.8-4.8); LYMPHOCYTES % (AUTO) 30.2 % (20.0-44.0); MEAN CORPUSCULAR HGB CONC 35 g/dl (31.0-36.0); MEAN CORPUSCULAR VOLUME 92 fL (80-96); MONOCYTES # (AUTO) 0.3 K/uL (0.1-1.30); MONOCYTES % (AUTO) 15.8 % (2.0-12.0); NEUTROPHILS # (AUTO) 1.1 K/uL (1.8-8.9); PLATELET COUNT (AUTO) 92 K/uL (150-450); RED BLOOD CELL COUNT(AUTO) 3.07 MIL/uL (4.5-6.0)
[2022-11-25 07:00] VITALS: BP 114/89
[2022-11-25 07:08] LABS: CALCIUM, SERUM 8.4 mg/dL (8.5-10.1); CREATININE 1.1 mg/dL (0.6-1.3); POTASSIUM 4.1 mmol/L (3.5-5.1)
--- NOTE | 2022-11-25 07:24 | NUR ---
RN OPENING NOTE RECEIVED PATIENT IN BED AWAKE, A/O X2. NO SIGNS OF ACUTE DISTRESS NOTED. ON ROOM AIR, TOLERATING WELL. DENIES ANY PAIN AT THIS TIME. NOTED WITH IV ACCESS ON LEFT UPPER ARM #22G, INTACT AND PATENT WITH D5 1/2 NS @ 75ML/HR RUNNING. CURRENTLY ON NPO FOR PROCEDURE. SAFETY MEASURE IN PLACE. BED IN LOW AND LOCKED POSITION, SIDE RAILS UP X2, CALL LIGHT PLACED WITHIN EASY REACH. WILL CONTINUE TO MONITOR PATIENT.
[2022-11-25 08:06] LABS: IMMUNOGLOBULIN A, SERUM 515 mg/dL (90-386); IMMUNOGLOBULIN G, SERUM 1728 mg/dL (603-1613); IMMUNOGLOBULIN M, SERUM 288 mg/dL (20-172)
[2022-11-25] MEDS: MEGESTROL ACETATE SUSP 400 MG/10 ML UDC PO SCH ×2 (08:57→16:18)
[2022-11-25] MEDS: FLUCONAZOLE (100 MG) 100 MG TABLET PO SCH ×2 (08:57→08:58)
[2022-11-25] MEDS: DOCUSATE SODIUM 100 MG CAPSULE PO SCH (08:57)
[2022-11-25] MEDS: PANTOPRAZOLE 40 MG TABLET.DR PO SCH (08:57)
[2022-11-25] MEDS: ACYCLOVIR 800 MG TABLET PO SCH ×2 (08:58→16:17)
[2022-11-25 09:07] LABS: BAND % (MANUAL) 2 % (0.0-5.0); LYMPHOCYTES % (MANUAL) 30 % (16-48); MONOCYTES % (MANUAL) 14 % (0-11.0); NEUTROPHILS % (MANUAL) 54 (42-76)
[2022-11-25] MEDS: ENSURE ENLIVE 237 ML LIQUID (VANILLA) PO SCH ×4 (09:56→17:05)
--- NOTE | 2022-11-25 10:46 | NUR ---
WOUND CARE CONSULT: RECEIVED CONSULT FOR RT LEG BUMP. NO BUMP NOTED. PT NOTED TO BE MOVING ABOUT IN THE BED. WILL SEE PRN.
--- NOTE | 2022-11-25 11:15 | NUR ---
RN NOTE NEW MIDLINE #18G INSERTED BY JIMMY STOKES TO RIGHT UPPER ARM, WITH GOOD BLOOD RETURN. COVERED WITH TRANSPARENT DRESSING.
[2022-11-25] MEDS ORDERED: CT SWABBABLE VALVE TRANS SET 1 EA INFUS.SET MC ONE (11:36)
[2022-11-25] MEDS ORDERED: IV NS 0.9% 250 ML IV ONE (11:36)
[2022-11-25] MEDS ORDERED: IOHEXOL-300 100 ML VIAL IV ONE (11:36)
[2022-11-25] MEDS: IV D5/0.45 NACL 1,000 ML IV PRN (11:43)
[2022-11-25 12:07] LABS: *ANA ANTI-CENTROMERE B AB <0.2 AI (0.0-0.9); *ANA ANTI-DNA(DS) AB, QN <1 IU/mL (0-9); *ANA ANTI-JO-1 <0.2 AI (0.0-0.9); *ANA ANTICHROMATIN ANTIBODY <0.2 AI (0.0-0.9); *ANA RNP ANTIBODIES <0.2 AI (0.0-0.9); *ANA SJOGREN'S ANTI-SS-A 0.2 AI (0.0-0.9); *ANA SJOGREN'S ANTI-SS-B <0.2 AI (0.0-0.9); *ANAANTI-SCLERODERMA-70 AB <0.2 AI (0.0-0.9); *ANASMITH AB <0.2 AI (0.0-0.9)
[2022-11-25] MEDS: SULFAMETH/TRIMETH 800/160 MG 1 UDTAB TABLET PO SCH (12:14)
[2022-11-25] MEDS: CEFTRIAXONE 2 G in IV D5W 100 ML IV SCH (12:15)
[2022-11-25 17:07] LABS: *SPE A/G RATIO 0.5 (0.7-1.7); *SPE ALPHA-1-GLOBULIN 0.3 g/dL (0.0-0.4); *SPE ALPHA-2-GLOBULIN 0.9 g/dL (0.4-1.0); *SPE M-SPIKE Not Observed g/dL (Not Observed)
--- NOTE | 2022-11-25 18:49 | NUR ---
RN CLOSING NOTE PATIENT IN BED ASLEEP, EASILY AROUSED. NO SIGNS OF ACUTE DISTRESS NOTED. REMAINS STABLE ON ROOM AIR, NO SOB NOTED, BREATHING EVEN AND UNLABORED. NO C/O PAIN AT THIS TIME. WITH IV ACCESS ON LEFT UPPER ARM #22G, SL AND ON RIGHT UPPER ARM MIDLINE #18G, INTACT AND PATENT WITH D5 1/2 NS @ 75ML/HR INFUSING WELL. ENCOURAGED FLUIDS. NEUTROPENIC PRECAUTIONS OBSERVED. SAFETY MEASURE MAINTAINED. BED IN LOW AND LOCKED POSITION, SIDE RAILS UP X2, CALL LIGHT PLACED WITHIN EASY REACH. WILL ENDORSE TO NEXT SHIFT FOR CONTINUITY OF CARE.
--- NOTE | 2022-11-25 19:25 | NUR ---
RN OPENING NOTE RECEIVED PATIENT IN BED AWAKE, A/O X2 CONFUSED,ANGELICA WELL ON RM AIR,NO SIGN SOB/DISTRESS NOTED,NO COMPLAINED OF PAIN/DISCOMFORT AT THIS TIME,IV ACCESS ON EZIO ML WITH D5 1/2 NS @ 75ML/HR INFUSING WELL,SAFETY MEASURE IN PLACE. BED IN LOW AND LOCKED POSITION, SIDE RAILS UP X2, CALL LIGHT PLACED WITHIN EASY REACH. WILL CONTINUE TO MONITOR.
[2022-11-25 20:00] VITALS: BP 98/62
[2022-11-25] MEDS: SENNOSIDES 8.6 MG TABLET PO SCH (21:08)
[2022-11-26] MEDS: VANCOMYCIN HCL 0.75 GM in IV D5W 250 ML IV SCH ×2 (02:31→14:17)
[2022-11-26] MEDS: IV D5/0.45 NACL 1,000 ML IV PRN ×2 (03:02→17:50)
--- NOTE | 2022-11-26 06:22 | NUR ---
RN CLOSING NOTES; PATIENT IN BED AWAKE, A/O X2 CONFUSED,ANGELICA WELL ON RM AIR,NO SIGN SOB/DISTRESS NOTED,NO COMPLAINED OF PAIN/DISCOMFORT DURING SHIFT,DUE MEDS GIVEN ORDER,ALL NEEDS ATTENDED,IV ACCESS ON EZIO ML WITH D5 1/2 NS @ 75ML/HR INFUSING WELL,SAFETY MEASURE IN PLACE. BED IN LOW AND LOCKED POSITION, SIDE RAILS UP X2, CALL LIGHT PLACED WITHIN EASY REACH. WILL ENDORSED YO NEXT SHIFT.
--- NOTE | 2022-11-26 07:30 | NUR ---
MS RN OPENING NOTE RECEIVED PATIENT ON BED, RESTING, A/O X2, VERBALLY RESPONSIVE. ON ROOM AIR TOLERATING WELL. NO SOB NOTED. NOT IN DISTRESS. WITH NO C/O PAIN AT THIS TIME. WITH IV ACCESS ON RIGHT UPPER ARM MIDLINE WITH D5 1/2NS AT 75ML/HR INFUSING WELL. SAFETY MEASURES IN PLACE. BED IN LOW AND LOCKED POSITION, SIDE RAILS UP X2, CALL LIGHT PLACED WITHIN EASY REACH. WILL CONTINUE TO MONITOR PATIENT.
[2022-11-26 08:00] VITALS: BP 95/77
[2022-11-26] MEDS: MEGESTROL ACETATE SUSP 400 MG/10 ML UDC PO SCH ×2 (09:07→16:36)
[2022-11-26] MEDS: DOCUSATE SODIUM 100 MG CAPSULE PO SCH (09:14)
[2022-11-26] MEDS: PANTOPRAZOLE 40 MG TABLET.DR PO SCH (09:14)
[2022-11-26] MEDS: ENSURE ENLIVE 237 ML LIQUID (VANILLA) PO SCH ×3 (09:15→16:38)
[2022-11-26] MEDS: ACYCLOVIR 800 MG TABLET PO SCH ×2 (09:16→16:37)
[2022-11-26] MEDS: FLUCONAZOLE (100 MG) 100 MG TABLET PO SCH ×2 (10:43→20:12)
[2022-11-26] MEDS: CEFTRIAXONE 2 G in IV D5W 100 ML IV SCH (12:53)
[2022-11-26] MEDS: SULFAMETH/TRIMETH 800/160 MG 1 UDTAB TABLET PO SCH (12:54)
[2022-11-26 16:00] VITALS: BP 131/60
[2022-11-26] MEDS ORDERED: AZITHROMYCIN 250 MG TABLET PO SCH (17:00)
--- NOTE | 2022-11-26 18:26 | NUR ---
MS RN CLOSING NOTES PATIENT ON BED, RESTING, A/O X2 WITH EPISODES OF CONFUSION. ON ROOM AIR TOLERATING WELL. NO SOB NOTED. NOT IN DISTRESS. WITH NO C/O PAIN AT THIS TIME. WITH IV ACCESS ON RIGHT UPPER ARM MIDLINE WITH D5 1/2NS AT 75ML/HR INFUSING WELL. DUE MEDS GIVEN. REFAXED REQUEST FOR MEDICAL RECORDS FROM [facility]. SAFETY MEASURES IN PLACE. BED IN LOW AND LOCKED POSITION, SIDE RAILS UP X2, CALL LIGHT PLACED WITHIN EASY REACH. WILL ENDORSE TO NEXT SHIFT FOR MARCIA.
--- NOTE | 2022-11-26 19:36 | NUR ---
MS RN OPENING NOTES RECEIVED PATIENT AWAKE IN BED. PATIENT IS A/O TIMES 2. NO PAIN NOTED. NO SOB NOTED. NO DISTRESS NOTED. ALL=PATIENT IS ON DROPLET PRECAUTION. EZIO MIDLINE INTACT AND RUNNING D5 1/2 NS AT 75 ML /HR. ALL NEEDS ATTENDED. ALL SAFETY MEASURES IN PLACE. BED LOCKED IN THE LOWEST POSITION. CALL LIGHT AND TABLE IN EASY REACH. SIDE RAILS UP TIMES 2. BED ALARM ON WILL CONTINUE TO MONITOR CLOSELY.
[2022-11-26 20:00] VITALS: BP 116/75
[2022-11-26] MEDS: SENNOSIDES 8.6 MG TABLET PO SCH (21:10)
[2022-11-27] MEDS: VANCOMYCIN HCL 0.75 GM in IV D5W 250 ML IV SCH ×2 (02:02→15:00)
--- NOTE | 2022-11-27 06:36 | NUR ---
MS RN CLOSING NOTES PATIENT AWAKE IN BED. PATIENT IS A/O TIMES 2. NO PAIN NOTED. NO SOB NOTED. NO DISTRESS NOTED. PATIENT IS ON DROPLET PRECAUTION. EZIO MIDLINE INTACT AND RUNNING D5 1/2 NS AT 75 ML /HR. ALL NEEDS ATTENDED.ALL DUE MEDS GIVEN ORDERED.PATIENT ALSO ON NEUTROPENIC PRECAUTION. ALL SAFETY MEASURES IN PLACE. BED LOCKED IN THE LOWEST POSITION. CALL LIGHT AND TABLE IN EASY REACH. SIDE RAILS UP TIMES 2. BED ALARM ON WILL ENDORSE FOR MARCIA.
[2022-11-27 06:59] LABS: CALCIUM, SERUM 8.5 mg/dL (8.5-10.1); CREATININE 1.1 mg/dL (0.6-1.3)
[2022-11-27 07:00] VITALS: BP 101/62
[2022-11-27 07:00] LABS: EOSINOPHILS % (AUTO) 0.5 % (0.0-6.0); HEMATOCRIT 29 % (39-51); HEMOGLOBIN 9.9 g/dL (13.5-17.5); LYMPHOCYTES # (AUTO) 0.7 K/uL (0.8-4.8); LYMPHOCYTES % (AUTO) 25.6 % (20.0-44.0); MEAN CORPUSCULAR HGB CONC 35 g/dl (31.0-36.0); MEAN CORPUSCULAR VOLUME 91 fL (80-96); MONOCYTES # (AUTO) 0.4 K/uL (0.1-1.30); MONOCYTES % (AUTO) 16.5 % (2.0-12.0); NEUTROPHILS # (AUTO) 1.5 K/uL (1.8-8.9); NEUTROPHILS % (AUTO) 56.4 % (43.0-81.0); PLATELET COUNT (AUTO) 130 K/uL (150-450); RED BLOOD CELL COUNT(AUTO) 3.16 MIL/uL (4.5-6.0); WHITE BLOOD COUNT (AUTO) 2.7 K/uL (4.3-11.0)
--- NOTE | 2022-11-27 07:30 | NUR ---
MS RN OPENING NOTES RECEIVED PATIENT AWAKE IN BED. A/O X 2, NO PAIN NOTED. ON ROOM AIR, TOLERATING WELL, NO DISTRESS NOTED. PATIENT ON DROPLET PRECAUTION. MIDLINE EZIO WITH ONGOING D5 1/2 NS AT 75 ML /HR, INFUSING WELL. SAFETY MEASURES IN PLACE: BED LOCKED IN THE LOWEST POSITION, CALL LIGHT AND TRAY TABLE IN EASY REACH, SIDE RAILS UP TIMES 3, BED ALARM ON. WILL CONTINUE TO MONITOR.
[2022-11-27 08:08] LABS: EOSINOPHILS % (MANUAL) 2 % (0-4); LYMPHOCYTES % (MANUAL) 31 % (16-48); MONOCYTES % (MANUAL) 11 % (0-11.0); NEUTROPHILS % (MANUAL) 56 (42-76)
[2022-11-27] MEDS: ENSURE ENLIVE 237 ML LIQUID (VANILLA) PO SCH ×3 (08:32→17:28)
[2022-11-27] MEDS: PANTOPRAZOLE 40 MG TABLET.DR PO SCH (08:32)
[2022-11-27] MEDS: DOCUSATE SODIUM 100 MG CAPSULE PO SCH (09:26)
[2022-11-27] MEDS: FLUCONAZOLE (100 MG) 100 MG TABLET PO SCH ×2 (09:26→21:31)
[2022-11-27] MEDS: ACYCLOVIR 800 MG TABLET PO SCH (09:27)
[2022-11-27] MEDS: MEGESTROL ACETATE SUSP 400 MG/10 ML UDC PO SCH ×2 (09:27→16:27)
[2022-11-27] MEDS: IV D5/0.45 NACL 1,000 ML IV PRN (10:48)
[2022-11-27] MEDS: SULFAMETH/TRIMETH 800/160 MG 1 UDTAB TABLET PO SCH (12:21)
[2022-11-27] MEDS: CEFTRIAXONE 2 G in IV D5W 100 ML IV SCH (12:21)
--- NOTE | 2022-11-27 15:04 | NUR ---
RN NOTES VANCOMYCIN 0.75G IV AT 1500 NOT GIVEN, VANCO TROUGH- 25, PHARMACY MADE AWARE.
[2022-11-27 16:00] VITALS: BP 117/72
[2022-11-27] MEDS ORDERED: EMTRICITABINE/TENOFOVIR 1 TAB PO SCH (16:00)
[2022-11-27] MEDS: VANCOMYCIN 500 MG in IV D5W 100ml IV SCH (16:12)
[2022-11-27] MEDS: TENOFOVIR DISOPROXIL FUMARATE 300 MG TABLET PO SCH (16:24)
[2022-11-27] MEDS: RALTEGRAVIR POTASSIUM 400 MG TABLET PO SCH (16:25)
[2022-11-27] MEDS: EMTRICITABINE 200 MG CAPSULE PO SCH (16:25)
[2022-11-27] MEDS: ACYCLOVIR 200 MG CAPSULE PO SCH (16:31)
--- NOTE | 2022-11-27 18:36 | NUR ---
MS RN CLOSING NOTES PATIENT RESTING IN BED. A/O X 2, NO PAIN/DISCOMFORT NOTED WITHIN THE SHIFT. PATIENT IS CALM AND COOPERATIVE. ON ROOM AIR, TOLERATED WELL, NO SIGN OF ACUTE RESPIRATORY DISTRESS NOTED. MAINTAINED DROPLET PRECAUTION. MIDLINE EZIO WITH ONGOING D5 1/2 NS AT 75 ML /HR, INFUSING WELL. SAFETY MEASURES IN PLACE: BED LOCKED IN THE LOWEST POSITION, CALL LIGHT AND TRAY TABLE IN EASY REACH, SIDE RAILS UP TIMES 3, BED ALARM ON. WILL ENDORSE MARCIA TO HOSPITAL PLAN ADMINISTRATOR.
--- NOTE | 2022-11-27 19:50 | NUR ---
MS RN OPENING NOTE RECEIVED PATIENT AWAKE IN BED. PATIENT IS A/O TIMES 2, WITH CONFUSION. NO SOB, NO RESPIRATORY DISTRESS NOTED. NO C/O PAIN. PATIENT IS ON DROPLET PRECAUTION. RIGHT UA MIDLINE INTACT AND RUNNING D5 1/2 NS AT 75 ML /HR. ALL SAFETY MEASURES IN PLACE. BED LOCKED IN THE LOWEST POSITION. CALL LIGHT AND TABLE IN EASY REACH. SIDE RAILS UP TIMES 2. BED ALARM ON. WILL CONTINUE TO MONITOR CLOSELY.
[2022-11-27 20:00] VITALS: BP 106/71
[2022-11-27] MEDS: SENNOSIDES 8.6 MG TABLET PO SCH (21:31)
[2022-11-28] MEDS: VANCOMYCIN 500 MG in IV D5W 100ml IV SCH ×2 (04:24→16:56)
--- NOTE | 2022-11-28 06:39 | NUR ---
MS RN CLOSING NOTE LEFT PATIENT SLEEPING IN BED. PATIENT IS A/O TIMES 2, WITH CONFUSION. NO SOB, NO RESPIRATORY DISTRESS NOTED. NO C/O PAIN. PATIENT IS ON DROPLET PRECAUTION. RIGHT UA MIDLINE INTACT AND RUNNING D5 1/2 NS AT 75 ML /HR. ALL SAFETY MEASURES IN PLACE. BED LOCKED IN THE LOWEST POSITION. CALL LIGHT AND TABLE IN EASY REACH. SIDE RAILS UP TIMES 2. BED ALARM ON. WILL ENDORSE PT TO AM SHIFT NURSE FOR MARCIA.
[2022-11-28 06:55] LABS: BASOPHILS % (AUTO) 0.9 % (0.0-2.0); EOSINOPHILS % (AUTO) 0.3 % (0.0-6.0); HEMATOCRIT 32 % (39-51); HEMOGLOBIN 10.8 g/dL (13.5-17.5); LYMPHOCYTES # (AUTO) 0.7 K/uL (0.8-4.8); LYMPHOCYTES % (AUTO) 21.9 % (20.0-44.0); MEAN CORPUSCULAR HGB CONC 34 g/dl (31.0-36.0); MEAN CORPUSCULAR VOLUME 92 fL (80-96); MONOCYTES # (AUTO) 0.5 K/uL (0.1-1.30); MONOCYTES % (AUTO) 16.7 % (2.0-12.0); NEUTROPHILS # (AUTO) 1.9 K/uL (1.8-8.9); NEUTROPHILS % (AUTO) 60.2 % (43.0-81.0); PLATELET COUNT (AUTO) 152 K/uL (150-450); RED BLOOD CELL COUNT(AUTO) 3.43 MIL/uL (4.5-6.0); WHITE BLOOD COUNT (AUTO) 3.2 K/uL (4.3-11.0)
[2022-11-28 07:07] LABS: CALCIUM, SERUM 8.8 mg/dL (8.5-10.1); CREATININE 1.2 mg/dL (0.6-1.3); POTASSIUM 4.1 mmol/L (3.5-5.1)
--- NOTE | 2022-11-28 07:20 | NUR ---
MS RN RECEIVED PATIENT IN BED. PATIENT IS AOX2 WITH CONFUSION. NO SOB, NO RESPIRATORY DISTRESS NOTED. NO C/O PAIN. PATIENT IS ON DROPLET PRECAUTION. RIGHT UA MIDLINE INTACT AND RUNNING D5 1/2 NS AT 75 ML /HR. ALL SAFETY MEASURES IN PLACE. BED LOCKED IN THE LOWEST POSITION. CALL LIGHT AND TABLE IN EASY REACH. SIDE RAILS UP TIMES 2. BED ALARM ON. WILL CONTINUE TO MONITOR PATIENT.
[2022-11-28] MEDS: ENSURE ENLIVE 237 ML LIQUID (VANILLA) PO SCH ×3 (08:00→16:57)
[2022-11-28 08:12] VITALS: BP 130/72
[2022-11-28] MEDS: PANTOPRAZOLE 40 MG TABLET.DR PO SCH (08:14)
[2022-11-28] MEDS: DOCUSATE SODIUM 100 MG CAPSULE PO SCH (09:19)
[2022-11-28] MEDS: MEGESTROL ACETATE SUSP 400 MG/10 ML UDC PO SCH ×2 (09:19→16:56)
[2022-11-28] MEDS: TENOFOVIR DISOPROXIL FUMARATE 300 MG TABLET PO SCH (09:21)
[2022-11-28] MEDS: FLUCONAZOLE (100 MG) 100 MG TABLET PO SCH ×2 (09:21→21:25)
[2022-11-28] MEDS: EMTRICITABINE 200 MG CAPSULE PO SCH (09:21)
[2022-11-28] MEDS: RALTEGRAVIR POTASSIUM 400 MG TABLET PO SCH ×2 (09:21→16:56)
[2022-11-28] MEDS: ACYCLOVIR 200 MG CAPSULE PO SCH ×2 (09:24→16:57)
--- NOTE | 2022-11-28 09:30 | NUR ---
MS MARQUEZ BREAKFAST SERVED. POOR APPETITE. ENCURAGED WHEN NEEDED. DUE MEDS GIVEN.
[2022-11-28] MEDS: SULFAMETH/TRIMETH 800/160 MG 1 UDTAB TABLET PO SCH (13:19)
[2022-11-28] MEDS: CEFTRIAXONE 2 G in IV D5W 100 ML IV SCH (13:19)
[2022-11-28 16:43] VITALS: BP 103/67
[2022-11-28] MEDS: IV D5/0.45 NACL 1,000 ML IV PRN (17:43)
--- NOTE | 2022-11-28 18:49 | NUR ---
ms rn patient on bed, awake, denies pain at this time, all needs attended,no distress noted, call light within reach
[2022-11-28 19:15] LABS: LYMPHOCYTES % (MANUAL) 32 % (16-48); MONOCYTES % (MANUAL) 13 % (0-11.0); NEUTROPHILS % (MANUAL) 55 (42-76)
--- NOTE | 2022-11-28 19:36 | NUR ---
MS RN OPENING NOTES: RECEIVED PATIENT SLEEP IN BED COMFORTABLY, AROUSABLE TO VERBAL STIMULI, BED IN LOW POSITION, CALL LIGHTS WITHIN REACH, NO COMPLAIN OF PAIN AND DISCOMFORT AT THIS TIME, ON ROOM AIR SATURATING WELL, IV LINE AT EZIO ML WITH ONGOING D5 1/2 NS@75ML/HRE INFUSING WELL, PATIENT KEPT CLEAN AND DRY ALL NEEDS MET WILL CONTINUE TO MONITOR.
[2022-11-28 20:16] VITALS: BP 92/61
[2022-11-28] MEDS: SENNOSIDES 8.6 MG TABLET PO SCH (21:25)
[2022-11-29] MEDS: VANCOMYCIN 500 MG in IV D5W 100ml IV SCH (04:00)
--- NOTE | 2022-11-29 04:24 | NUR ---
RN NOTES: 0400AM VANCOMYCIN 500MG IV NOT GIVEN VANCOMYCIN TROUGH RESULT AT 0300 IS 22, NOTIFY [facility] SPOKE TO CARMELO AND ADVISE TO HOLD THE THE DOSE NOTED AND CARRY OUT, WILL CONTINUE TO MONITOR,.
--- NOTE | 2022-11-29 06:15 | NUR ---
MS RN CLOSING NOTES: RECEIVED PATIENT SLEEP IN BED, AROUSABLE TO VERBAL STIMULI, BED IN LOW POSITION, CALL LIGHTS WITHIN RECH, NO COMPLAIN OF PAIN AND DISCOMFORT AT THIS TIME, ON ROOM AIR SATURATING WELL,PATIENT IS A/O X 3-4 ABLE TO MAKE NEEDS KNOWN, WITH LINE AT EZIO ML WITH ONGOING D5 1/2 NSS @75ML.HR INFUSING WELL, HOB AT 30-45 DEGREE ON ASPIRATION PRECAUTION, PATIENT KEPT CLEAN AND DRY ALL NEEDS MET ENDORSE TO INCOMING SHIFT.
[2022-11-29 07:08] LABS: CALCIUM, SERUM 8.5 mg/dL (8.5-10.1); CREATININE 1.2 mg/dL (0.6-1.3); POTASSIUM 3.9 mmol/L (3.5-5.1)
--- NOTE | 2022-11-29 07:10 | NUR ---
MS RN RECEIVED ON BED, ORIENTED X 2,NOT IN ANY FORM OF DISTRESS, RESPIRATIONS EVEN AND UNLABORED,NO SOB NOTED.IV AT RIGHT UPPER ARM W/ D51/2 NS AT 75, INFUSING WELL. CALL LIGHT W/IN REACH,WILL MONITOR PATIENT.
[2022-11-29 07:13] LABS: BASOPHILS % (AUTO) 0.7 % (0.0-2.0); EOSINOPHILS % (AUTO) 0.3 % (0.0-6.0); HEMATOCRIT 31 % (39-51); HEMOGLOBIN 10.5 g/dL (13.5-17.5); LYMPHOCYTES # (AUTO) 0.8 K/uL (0.8-4.8); LYMPHOCYTES % (AUTO) 24.2 % (20.0-44.0); MEAN CORPUSCULAR HGB CONC 34 g/dl (31.0-36.0); MEAN CORPUSCULAR VOLUME 92 fL (80-96); MONOCYTES # (AUTO) 0.5 K/uL (0.1-1.30); MONOCYTES % (AUTO) 14.4 % (2.0-12.0); NEUTROPHILS % (AUTO) 60.4 % (43.0-81.0); PLATELET COUNT (AUTO) 164 K/uL (150-450); RED BLOOD CELL COUNT(AUTO) 3.33 MIL/uL (4.5-6.0); WHITE BLOOD COUNT (AUTO) 3.3 K/uL (4.3-11.0)
[2022-11-29 08:00] VITALS: BP 107/75
[2022-11-29] MEDS: PANTOPRAZOLE 40 MG TABLET.DR PO SCH (08:27)
[2022-11-29] MEDS: DOCUSATE SODIUM 100 MG CAPSULE PO SCH (08:27)
[2022-11-29] MEDS: TENOFOVIR DISOPROXIL FUMARATE 300 MG TABLET PO SCH (08:27)
[2022-11-29] MEDS: EMTRICITABINE 200 MG CAPSULE PO SCH (08:27)
[2022-11-29] MEDS: FLUCONAZOLE (100 MG) 100 MG TABLET PO SCH (08:28)
[2022-11-29] MEDS: ENSURE ENLIVE 237 ML LIQUID (VANILLA) PO SCH ×3 (08:29→17:00)
[2022-11-29] MEDS: MEGESTROL ACETATE SUSP 400 MG/10 ML UDC PO SCH ×2 (08:29→17:42)
[2022-11-29] MEDS: RALTEGRAVIR POTASSIUM 400 MG TABLET PO SCH ×2 (08:30→17:43)
--- NOTE | 2022-11-29 08:30 | NUR ---
MS MARQUEZ BREAKFAST SERVED, DUE MEDS GIVEN,TOLERATED WELL.
[2022-11-29] MEDS: IV D5/0.45 NACL 1,000 ML IV PRN (09:04)
[2022-11-29] MEDS: ACYCLOVIR 200 MG CAPSULE PO SCH ×2 (09:10→17:42)
--- NOTE | 2022-11-29 12:00 | NUR ---
ms rn patient will be [facility] this [facility].
[2022-11-29] MEDS: CEFTRIAXONE 2 G in IV D5W 100 ML IV SCH (14:28)
[2022-11-29] MEDS: SULFAMETH/TRIMETH 800/160 MG 1 UDTAB TABLET PO SCH (14:28)
--- NOTE | 2022-11-29 17:45 | NUR ---
healthcare administration intern instruction given to Grisel morrell,discharge via ambulance.
[2022-11-29] MEDS ORDERED: VANCOMYCIN HCL 0.75 GM in IV D5W 250 ML IV SCH (18:00)
[2022-11-29 23:06] LABS: *HIV-1 log10 RNA 5.015 (.)
== END 2022-11-29 18:10 | DRG 890 ==
LOC: ER 12:50 → MED 18:14
PROVIDERS: ADMIT Nurse Practitioner Acute Care; ATTEND Nurse Practitioner Acute Care
PROC: 05HB33Z Insertion of Infusion Device into Right Basilic Vein, Percutaneous Approach (ICD-10-PCS; principal; 2022-11-25)
DX: G03.9 Meningitis, unspecified (principal); B20 Human immunodeficiency virus [HIV] disease; F29 Unspecified psychosis not due to a substance or known physiological condition; N17.0 Acute kidney failure with tubular necrosis; G92.8 Other toxic encephalopathy; E43 Unspecified severe protein-calorie malnutrition; B37.0 Candidal stomatitis; R64 Cachexia; D68.59 Other primary thrombophilia; D69.6 Thrombocytopenia, unspecified; E88.09 Other disorders of plasma-protein metabolism, not elsewhere classified; E86.0 Dehydration; E87.0 Hyperosmolality and hypernatremia; Z20.822 Contact with and (suspected) exposure to COVID-19; Z86.61 Personal history of infections of the central nervous system; R62.7 Adult failure to thrive; Z86.73 Personal history of transient ischemic attack (TIA), and cerebral infarction without residual deficits; Z79.899 Other long term (current) drug therapy; G31.89 Other specified degenerative diseases of nervous system; D69.59 Other secondary thrombocytopenia; Z74.09 Other reduced mobility; Z68.1 Body mass index [BMI] 19.9 or less, adult; E86.1 Hypovolemia; D17.71 Benign lipomatous neoplasm of kidney; D72.821 Monocytosis (symptomatic); F17.200 Nicotine dependence, unspecified, uncomplicated; N28.1 Cyst of kidney, acquired; N18.9 Chronic kidney disease, unspecified; R63.0 Anorexia; F05 Delirium due to known physiological condition; H70.90 Unspecified mastoiditis, unspecified ear; J01.90 Acute sinusitis, unspecified
CPT/HCPCS: 36415; 62270; 70450-TC; 70553-TC; 71045-TC; 74178; 76700-TC; 76770-TC; 80048-TC; 80076-TC; 80202-TC; 81001; 82272-TC; 82607-TC; 82728-TC; 82784; 83540-TC; 83615-TC; 83735-TC; 83880; 83921; 84100-TC; 84155; 84165; 84443-TC; 84484-TC; 85025-TC; 85045-TC; 85396; 86140-TC; 86225; 86235; 86334; 86360; 86431-TC; 86706; 86803; 87040-TC; 87081-TC; 87340; 87536; 87806; 92507-TC; 92521; 92526; 92611-TC; 97110-TC; 97116-TC; 97530-TC; A4223; A9575; C9113; C9803; G0378; J0696; J3370; J3490; J7040; J7050; J7060; Q9967